=== PATIENT | male | born 1995 | race Hispanic/Latino ===

== ENCOUNTER 2022-01-03 15:24 | Emergency (ER) | payer OTHER ==
[~2022-01-03] VITALS: Ht 175.3 cm; Wt 81.6 kg
[2022-01-03 15:47] VITALS: BP 129/84
[2022-01-03] MEDS ORDERED: BACI30OI6 TP (16:30)
== END 2022-01-03 17:04 | disposition home or self-care (01) ==
LOC: EDH 15:24
DX: S80.811A Abrasion, right lower leg, initial encounter (principal); W54.0XXA Bitten by dog, initial encounter; Y93.89 Activity, other specified; Y92.89 Other specified places as the place of occurrence of the external cause; Y99.8 Other external cause status